=== PATIENT | female | born 1965 | race Caucasian/White ===

== ENCOUNTER 2019-04-25 12:50 | Day surgery (SDC) | payer MEDICAID ==
[2019-04-25] MEDS ORDERED: Marcaine 0.5% SDV 10 ML IJ ONE (12:51)
[2019-04-25] MEDS ORDERED: DIPRIVAN 200 MG/20 ML IV ONE (13:43)
[2019-04-25] MEDS ORDERED: Lactated Ringers 1,000 ML IV ONE (14:01)
--- NOTE | 2019-04-25 16:32 | XRAY ---
Indication: Ganglion nerve block. Intraoperative fluoroscopy was provided for 21 seconds. Single digital spot image submitted for interpretation demonstrates posterior needle tip projecting just anterior to the coccyx. Small amount of contrast injected for needle tip placement. Correlate with intraoperative findings/report.
--- NOTE | 2019-04-25 16:36 | XRAY ---
21 seconds fluoroscopy time in surgery for ganglion impar nerve block.
== END 2019-04-25 14:13 | disposition home or self-care (01) ==
LOC: SDC-PAIN 12:50
PROVIDERS: ATTEND Psychiatry & Neurology Pain Medicine
DX: M53.3 Sacrococcygeal disorders, not elsewhere classified (principal); I10 Essential (primary) hypertension; J45.909 Unspecified asthma, uncomplicated; M79.7 Fibromyalgia; F41.8 Other specified anxiety disorders; Z79.899 Other long term (current) drug therapy
CPT/HCPCS: 64999; 72020; 77002; 84703; J2704; Q9966

== ENCOUNTER 2019-05-09 12:31 | Day surgery (SDC) | payer MEDICAID, OTHER ==
[2019-05-09] MEDS ORDERED: Decadron 4 MG INJ IV ONE (12:32)
[2019-05-09] MEDS ORDERED: Xylocaine 1% Vial 30 ML PF IJ ONE (12:32)
[2019-05-09] MEDS ORDERED: Ketamine HCl 50 MG/ML ONE (13:52)
[2019-05-09] MEDS ORDERED: DIPRIVAN 200 MG/20 ML IV ONE (13:52)
[2019-05-09] MEDS ORDERED: Lactated Ringers 1,000 ML IV ONE (14:49)
--- NOTE | 2019-05-09 15:04 | XRAY ---
Indication: Left piriformis muscle injection. Intraoperative fluoroscopy was provided for 10 seconds. Single digital spot image submitted for interpretation demonstrates posterior needle tip projecting over the expected left piriformis muscle. Small amount of contrast injected for needle tip placement. Correlate with intraoperative findings/report.
--- NOTE | 2019-05-09 16:34 | XRAY ---
10 seconds of fluoroscopy was used in surgery for a left piriformis muscle injection.
== END 2019-05-09 14:15 ==
LOC: SDC-PAIN 12:31
PROVIDERS: ATTEND Psychiatry & Neurology Pain Medicine
DX: M79.18 Myalgia, other site (principal); I10 Essential (primary) hypertension; J45.909 Unspecified asthma, uncomplicated; M79.7 Fibromyalgia; F41.8 Other specified anxiety disorders; Z79.899 Other long term (current) drug therapy
CPT/HCPCS: 20552; 72020; 77002; 84703; J1100; J2001; J2704; Q9966

== ENCOUNTER 2019-06-20 13:49 | Day surgery (SDC) | payer OTHER ==
[2019-06-20] MEDS ORDERED: Depo-Medrol 40 MG/ML IM ONE (13:50)
[2019-06-20] MEDS ORDERED: Sodium Chloride 0.9(Preservative Free) 10 ML IJ ONE (13:50)
[2019-06-20] MEDS ORDERED: Xylocaine 1% Vial 30 ML PF IJ ONE (13:50)
[2019-06-20] MEDS ORDERED: DIPRIVAN 200 MG/20 ML IV ONE (16:07)
--- NOTE | 2019-06-20 16:41 | XRAY ---
Indication: Lumbar SCOTT. Intraoperative fluoroscopy was provided for 10 seconds. 2 digital spot images submitted for interpretation demonstrates midline needle tip just posterior to the last lumbar segment. Correlate with intraoperative findings/report.
--- NOTE | 2019-06-20 16:43 | XRAY ---
10 seconds fluoroscopy time in surgery for lumbar SCOTT.
[2019-06-20] MEDS ORDERED: Lactated Ringers 1,000 ML IV ONE (18:23)
== END 2019-06-20 16:37 | disposition home or self-care (01) ==
LOC: SDC-PAIN 13:49
PROVIDERS: ATTEND Psychiatry & Neurology Pain Medicine
DX: M54.16 Radiculopathy, lumbar region (principal); I10 Essential (primary) hypertension; J45.909 Unspecified asthma, uncomplicated; M79.7 Fibromyalgia; F41.8 Other specified anxiety disorders; Z79.899 Other long term (current) drug therapy
CPT/HCPCS: 62323; 72100; 77003; 84703; J1030; J2001; J2704; Q9966

== ENCOUNTER 2019-07-18 13:53 | Day surgery (SDC) | payer OTHER ==
[2019-07-18] MEDS ORDERED: Depo-Medrol 40 MG/ML IM ONE (13:54)
[2019-07-18] MEDS ORDERED: Xylocaine 1% Vial 30 ML PF IJ ONE (13:54)
[2019-07-18] MEDS ORDERED: Marcaine Mpf 0.5% Vial 30 Ml IJ ONE (13:54)
[2019-07-18] MEDS ORDERED: Decadron 4 MG INJ IV ONE (13:54)
[2019-07-18] MEDS ORDERED: DIPRIVAN 200 MG/20 ML IV ONE (14:58)
[2019-07-18] MEDS ORDERED: Ketamine HCl 50 MG/ML ONE (14:58)
--- NOTE | 2019-07-18 16:55 | XRAY ---
Indication: Left SI joint and piriformis muscle injection. Intraoperative fluoroscopy was provided for 21 seconds. 3 digital spot images submitted for interpretation demonstrates posterior needle tip projecting over the inferior left SI joint. Second needle tip projects over the expected left piriformis muscle with small amount of contrast injected for needle tip placement. Correlate with intraoperative findings/report.
[2019-07-18] MEDS ORDERED: Lactated Ringers 1,000 ML IV ONE (17:06)
--- NOTE | 2019-07-18 17:14 | XRAY ---
21 seconds fluoroscopy time in surgery for left SI joint and piriformis muscle injections.
== END 2019-07-18 15:25 | disposition home or self-care (01) ==
LOC: SDC-PAIN 13:53
PROVIDERS: ATTEND Psychiatry & Neurology Pain Medicine
DX: M46.1 Sacroiliitis, not elsewhere classified (principal); M79.18 Myalgia, other site; I10 Essential (primary) hypertension; J45.909 Unspecified asthma, uncomplicated; F41.8 Other specified anxiety disorders; G56.00 Carpal tunnel syndrome, unspecified upper limb; Z79.899 Other long term (current) drug therapy
CPT/HCPCS: 20550; 27096; 72170; 77002; 84703; J1030; J1100; J2001; J2704; Q9966; G0260

== ENCOUNTER 2019-09-05 11:39 | Day surgery (SDC) | payer OTHER ==
[2019-09-05] MEDS ORDERED: Marcaine 0.5% SDV 10 ML IJ ONE (11:40)
[2019-09-05] MEDS ORDERED: Depo-Medrol 40 MG/ML IM ONE (11:40)
[2019-09-05] MEDS ORDERED: Ketamine HCl 50 MG/ML ONE (12:55)
[2019-09-05] MEDS ORDERED: DIPRIVAN 200 MG/20 ML IV ONE (12:55)
--- NOTE | 2019-09-05 14:10 | XRAY ---
Indication: Left knee injection. Intraoperative fluoroscopy was provided for 5 seconds. Single digital spot images submitted for interpretation demonstrates needle tip projecting over the left femur intercondylar notch. Small amount of contrast injected for needle tip placement. Correlate with intraoperative findings/report.
[2019-09-05] MEDS ORDERED: Lactated Ringers 1,000 ML IV ONE (15:41)
--- NOTE | 2019-09-05 16:33 | XRAY ---
5 seconds fluoroscopy time in surgery for left intra-articular knee injection.
== END 2019-09-05 13:20 | disposition home or self-care (01) ==
LOC: SDC-PAIN 11:39
PROVIDERS: ATTEND Psychiatry & Neurology Pain Medicine
DX: M17.12 Unilateral primary osteoarthritis, left knee (principal); I10 Essential (primary) hypertension; M79.7 Fibromyalgia; F41.8 Other specified anxiety disorders; J45.909 Unspecified asthma, uncomplicated; Z79.899 Other long term (current) drug therapy
CPT/HCPCS: 20610; 73560; 77002; 84703; J1030; J2704; Q9966

== ENCOUNTER 2019-09-26 12:11 | Emergency (ER) | payer OTHER ==
[2019-09-26 12:28] VITALS: BP 159/94; PULSE 81; O2SAT 99
--- NOTE | 2019-09-26 12:44 | ERPHSYRPT ---
- History of Present Illness Time Seen by Provider: 09/26/19 12:30 Source: patient Exam Limitations: no limitations Patient Subjective Stated Complaint: Pt states that when she woke up today that she was having pain in her medial lower back that radiated down her left leg and is unable to walk, pt receives injections in her left knee from the pain clinic and was scheduled to get one in her back on Tuesday, hx of fibromyalgia , hx of chronic low back pain Triage Nursing Assessment: Pt brought to the ER by her husbands cousin, pt unable to walk today, normally walks with a cane, hypertensive, rates pain 10/ 10 in back and down left leg, tender to touch on mid lower back, pulses normal, cap refill normal Physician History: This is a 54-year-old female who presents with lower right side back pain. No acute injury. Patient has chronic pain issues. Patient was seen by her pain specialist on September 20 and September 24 of this year. She woke up this morning and had more severe pain in her right lower back. Patient was told that if she could get to the clinic earlier this morning, they could see her and give her pain injection (steroid). She could not get there in time and so she came to the emergency room. Patient is able to take Phenergan without any problems. She did not take her Phenergan medication this morning Timing/Duration: today Method of Injury: other (No acute traumatic injury) Quality: sharp Back Pain Location: paraspinous muscles (Right side lumbar level) Back Pain Radiation: buttocks Severity of Pain-Max: moderate Severity of Pain-Current: moderate Modifying Factors: Improves With: movement Associated Symptoms: denies symptoms Previous symptoms: same symptoms as today, recently seen, recently treated Allergies/Adverse Reactions: amoxicillin Allergy (Verified 09/26/19 12:28) Penicillins Allergy (Verified 09/26/19 12:28) prochlorperazine [From Compazine] Allergy (Verified 09/26/19 12:28) Home Medications: Baclofen 10 mg PO DAILY 09/26/19 [History] Duloxetine HCl 30 mg PO DAILY 09/26/19 [History] Fluticasone Propionate [Flovent 110 Mcg MDI] 1 spray IH UD 09/26/19 [ History] Gabapentin 400 mg PO DAILY 09/26/19 [History] Linaclotide [Linzess] 145 mcg PO DAILY 09/26/19 [History] Promethazine HCl 25 mg [Phenergan 25 mg] 25 mg PO TID 09/26/19 [History] Quetiapine Fumarate 100 mg [Seroquel 100 MG] 100 mg PO DAILY 09/26/19 [ History] lisinopriL [Lisinopril] 20 mg PO DAILY 09/26/19 [History] - Review of Systems Constitutional: No Symptoms Eyes: No Symptoms Ears, Nose, & Throat: No Symptoms Respiratory: No Symptoms Cardiac: No Symptoms Abdominal/Gastrointestinal: No Symptoms Genitourinary Symptoms: No Symptoms Musculoskeletal: Back Pain Skin: No Symptoms Neurological: No Symptoms Psychological: No Symptoms Endocrine: No Symptoms Hematologic/Lymphatic: No Symptoms Immunological/Allergic: No Symptoms All Other Systems: Reviewed and Negative - Past Medical History Neurological History: Migraines Cardiac History: Hypertension Respiratory History: Asthma Musculoskeletal History: Fibromyalgia History: No Pertinent History Psycho-Social History: No Pertinent History Female Reproductive Disorders: No Pertinent History - Past Surgical History Past Surgical History: Yes Neuro Surgical History: No Pertinent History Cardiac: No Pertinent History Respiratory: No Pertinent History Gastrointestinal: No Pertinent History Genitourinary: No Pertinent History Female Surgical History: Section, Other - Social History Smoking Status: Never smoker Exposure to second hand smoke: No Drug Use: marijuana Patient Lives Alone: No - Female History Hx Now: No - Nursing Vital Signs Nursing Vital Signs: Initial Vital Signs Temperature 99.4 F 09/26/19 12:17 Pulse Rate 81 09/26/19 12:17 Blood Pressure 159/94 09/26/19 12:17 O2 Sat by Pulse Oximetry 99 09/26/19 12:17 Pain Scale Pain Intensity [Left Thigh] 10 Pain Intensity 10 - Physical Exam General Appearance: mild distress, alert, anxiety Eye Exam: PERRL/EOMI, eyes nml inspection Ears, Nose, Throat Exam: normal ENT inspection, moist mucous membranes Neck Exam: normal inspection, non-tender, supple, full range of motion Respiratory Exam: No chest tenderness Gastrointestinal Exam: No tenderness Pelvic Exam: not done Rectal Exam: not done Back Exam: normal inspection, decreased range of motion, muscle spasm, No point tenderness Extremity Exam: normal inspection, normal range of motion, pelvis stable Neurologic Exam: alert, oriented x 3, cooperative, 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 Patient is then to follow-up with her primary care physician and pain specialist tomorrow for further management. Counseled pt/family regarding: diagnosis, need for follow-up - Departure Departure Disposition: Home Clinical Impression: Acute exacerbation of chronic low back pain Condition: Stable Critical Care Time: No Referrals: GABRIELLE STONE MD [Primary Care Provider] - Additional Instructions: Take your medications as prescribed. Follow-up with your pain specialist and primary care physician tomorrow for further management.
[2019-09-26] MEDS ORDERED: Hydromorphone 1 mg/ml Ampule IM ONE (12:46)
[2019-09-26] MEDS ORDERED: solu-MEDROL 125 MG IM ONE (12:47)
[2019-09-26] MEDS ORDERED: Phenergan 25 MG INJ IM ONE (12:47)
[2019-09-26] MEDS ORDERED: solu-MEDROL 125 MG ONE (12:50)
[2019-09-26] MEDS ORDERED: Hydromorphone 1 mg/ml Ampule ONE (12:50)
[2019-09-26] MEDS ORDERED: Phenergan 25 MG INJ ONE (12:50)
== END 2019-09-26 13:49 | disposition home or self-care (01) ==
LOC: ED 12:11
DX: M54.5 Low back pain (principal); M79.7 Fibromyalgia; Z79.899 Other long term (current) drug therapy; I10 Essential (primary) hypertension
CPT/HCPCS: 96372; 99284; J1170; J2550; J2930

== ENCOUNTER 2019-10-03 09:38 | Day surgery (SDC) | payer OTHER ==
[2019-10-03] MEDS ORDERED: Marcaine 0.5% SDV 10 ML IJ ONE (09:39)
[2019-10-03] MEDS ORDERED: Depo-Medrol 40 MG/ML IM ONE (09:39)
[2019-10-03] MEDS ORDERED: DIPRIVAN 200 MG/20 ML IV ONE (10:33)
[2019-10-03] MEDS ORDERED: Ketamine HCl 50 MG/ML ONE (10:33)
--- NOTE | 2019-10-03 11:49 | XRAY ---
Indication: Left hip injection. Intraoperative fluoroscopy was provided for 14 seconds. Single digital spot image submitted for interpretation demonstrate needle tip just lateral to the left femur neck. Small amount of contrast injected for needle tip placement. Correlated with intraoperative findings/report.
--- NOTE | 2019-10-03 12:01 | XRAY ---
14 seconds fluoroscopy time in surgery for left intra-articular hip injection.
[2019-10-03] MEDS ORDERED: Lactated Ringers 1,000 ML IV ONE (13:38)
== END 2019-10-03 11:20 | disposition home or self-care (01) ==
LOC: SDC-PAIN 09:38
PROVIDERS: ATTEND Psychiatry & Neurology Pain Medicine
DX: M16.12 Unilateral primary osteoarthritis, left hip (principal); I10 Essential (primary) hypertension; J45.909 Unspecified asthma, uncomplicated; F41.8 Other specified anxiety disorders; Z79.899 Other long term (current) drug therapy
CPT/HCPCS: 20610; 73501; 77002; 84703; J1030; J2704; Q9966

== ENCOUNTER 2020-02-06 14:00 | Day surgery (SDC) | payer OTHER ==
[~2020-02-06 14:00] MED LIST: DIPRIVAN 200 MG/20 ML IV ONE; Ketamine HCl 50 MG/ML ONE
[2020-02-06] MEDS ORDERED: Sodium Chloride 0.9(Preservative Free) 10 ML IJ ONE (14:01)
[2020-02-06] MEDS ORDERED: Depo-Medrol 40 MG/ML IM ONE (14:01)
[2020-02-06] MEDS ORDERED: Xylocaine 1% Vial 30 ML PF IJ ONE (14:01)
--- NOTE | 2020-02-06 16:35 | XRAY ---
Indication: Lumbar SCOTT. Intraoperative fluoroscopy was provided for 15 seconds. 2 digital spot images submitted for interpretation demonstrates midline posterior needle tip projecting just posterior to the lumbosacral junction interspace. Small amount of contrast injected for needle tip placement. Correlate with intraoperative findings/report.
[2020-02-06] MEDS ORDERED: Lactated Ringers 1,000 ML IV ONE (16:38)
--- NOTE | 2020-02-06 16:39 | XRAY ---
15 seconds fluoroscopy time in surgery for lumbar CSOTT.
== END 2020-02-06 15:26 | disposition home or self-care (01) ==
LOC: SDC-PAIN 14:00
PROVIDERS: ATTEND Psychiatry & Neurology Pain Medicine
DX: M54.16 Radiculopathy, lumbar region (principal); I10 Essential (primary) hypertension; M79.7 Fibromyalgia; J45.909 Unspecified asthma, uncomplicated; F41.8 Other specified anxiety disorders; Z79.899 Other long term (current) drug therapy
CPT/HCPCS: 62323; 72100; 77003; 84703; J1030; J2001; J2704; Q9966

== ENCOUNTER 2020-03-12 10:08 | Day surgery (SDC) | payer OTHER ==
[2020-03-12] MEDS ORDERED: BUPIVACAINE 0.5% VIAL IJ ONE (10:09)
[2020-03-12] MEDS ORDERED: Depo-Medrol 40 MG/ML IM ONE (10:09)
[2020-03-12] MEDS ORDERED: DIPRIVAN 200 MG/20 ML IV ONE (11:20)
[2020-03-12] MEDS ORDERED: Ketamine HCl 50 MG/ML ONE (11:20)
[2020-03-12] MEDS ORDERED: Lactated Ringers 1,000 ML IV ONE (14:40)
--- NOTE | 2020-03-12 15:15 | XRAY ---
Indication: Right knee injection. Intraoperative fluoroscopy was provided for 6 seconds. Single digital spot image submitted for interpretation demonstrates needle tip projecting right femur intercondylar notch. Small amount of contrast injected for needle tip placement. Correlate with intraoperative findings/report.
--- NOTE | 2020-03-12 15:15 | XRAY ---
Indication: Left knee injection. Intraoperative fluoroscopy was provided for 4 seconds. Single digital spot image submitted for interpretation demonstrates needle tip projecting left femur intercondylar notch. Small amount of contrast injected for needle tip placement. Correlate with intraoperative findings/report.
--- NOTE | 2020-03-12 17:01 | XRAY ---
6 seconds of fluoroscopy was used in surgery for a right intra-articular knee injection.
--- NOTE | 2020-03-12 17:10 | XRAY ---
4 seconds of fluoroscopy was used in surgery for a left intra-articular knee injection.
== END 2020-03-12 11:45 | disposition home or self-care (01) ==
LOC: SDC-PAIN 10:08
PROVIDERS: ATTEND Psychiatry & Neurology Pain Medicine
DX: M17.0 Bilateral primary osteoarthritis of knee (principal); I10 Essential (primary) hypertension; J45.909 Unspecified asthma, uncomplicated; M79.7 Fibromyalgia; F41.8 Other specified anxiety disorders
CPT/HCPCS: 20610; 73560; 77002; 84703; J1030; J2704; Q9966

== ENCOUNTER 2020-04-02 14:07 | Day surgery (SDC) | payer OTHER ==
[2020-04-02] MEDS ORDERED: Depo-Medrol 40 MG/ML IM ONE (14:08)
[2020-04-02] MEDS ORDERED: BUPIVACAINE 0.5% VIAL IJ ONE (14:08)
[2020-04-02] MEDS ORDERED: Lactated Ringers 1,000 ML IV ONE (15:27)
[2020-04-02] MEDS ORDERED: DIPRIVAN 200 MG/20 ML IV ONE (16:21)
[2020-04-02] MEDS ORDERED: Ketamine HCl 50 MG/ML ONE (16:21)
--- NOTE | 2020-04-02 16:52 | XRAY ---
Indication: Right shoulder injection. Intraoperative fluoroscopy was provided for 14 seconds. Single digital spot image submitted for interpretation demonstrates needle tip projecting over the right glenohumeral joint superiorly. Small amount of contrast injected for needle tip placement. Correlate with intraoperative findings/report.
--- NOTE | 2020-04-02 17:17 | XRAY ---
14 seconds fluoroscopy time in surgery for right shoulder intra-articular injection.
== END 2020-04-02 16:31 | disposition home or self-care (01) ==
LOC: SDC-PAIN 14:07
PROVIDERS: ATTEND Psychiatry & Neurology Pain Medicine
DX: M19.011 Primary osteoarthritis, right shoulder (principal); M25.511 Pain in right shoulder; I10 Essential (primary) hypertension; J45.909 Unspecified asthma, uncomplicated; F41.8 Other specified anxiety disorders; M79.7 Fibromyalgia; Z79.899 Other long term (current) drug therapy
CPT/HCPCS: 20610; 73030; 77002; 84703; J1030; J2704; Q9966

== ENCOUNTER 2020-05-14 10:54 | Day surgery (SDC) | payer OTHER ==
[2020-05-14] MEDS ORDERED: Xylocaine-Mpf 2% 5 Ml Vial IJ ONE (10:55)
[2020-05-14] MEDS ORDERED: Depo-Medrol 40 MG/ML IM ONE (10:55)
[2020-05-14] MEDS ORDERED: Lactated Ringers 1,000 ML IV ONE (13:45)
--- NOTE | 2020-05-14 14:17 | XRAY ---
Indication: Bilateral L4-S1 MBB. Intraoperative fluoroscopy provided for 1 minute 10 seconds. Single digital spot image submitted for interpretation demonstrates posterior needle tips projecting over the expected left and right L4-S1 nerve roots. Correlate with intraoperative findings/report.
--- NOTE | 2020-05-14 14:20 | XRAY ---
1 minute and 10 seconds fluoroscopy time in surgery for bilateral L4-S1 MBB.
== END 2020-05-14 13:50 | disposition home or self-care (01) ==
LOC: SDC-PAIN 10:54
PROVIDERS: ATTEND Psychiatry & Neurology Pain Medicine
DX: M47.816 Spondylosis without myelopathy or radiculopathy, lumbar region (principal); I10 Essential (primary) hypertension; J45.909 Unspecified asthma, uncomplicated; M79.7 Fibromyalgia; F41.8 Other specified anxiety disorders; Z79.899 Other long term (current) drug therapy
CPT/HCPCS: 72020; 77002; 84703; J1030; J2704

== ENCOUNTER 2020-06-11 14:52 | Day surgery (SDC) | payer OTHER ==
[2020-06-11] MEDS ORDERED: Depo-Medrol 40 MG/ML IM ONE (14:53)
[2020-06-11] MEDS ORDERED: BUPIVACAINE 0.5% VIAL IJ ONE (14:53)
[2020-06-11] MEDS ORDERED: Ketamine HCl 50 MG/ML ONE (15:57)
[2020-06-11] MEDS ORDERED: DIPRIVAN 200 MG/20 ML IV ONE (15:57)
--- NOTE | 2020-06-11 16:37 | XRAY ---
Indication: Bilateral L4-S1 MBB. Intraoperative fluoroscopy was provided for 14 seconds. Single digital spot image submitted for interpretation demonstrates posterior needle tips projecting over the expected left and right L4-S1 nerve roots. Correlate with intraoperative findings/report.
--- NOTE | 2020-06-11 16:41 | XRAY ---
14 seconds fluoroscopy time in surgery for bilateral L4-S1 MBB.
[2020-06-11] MEDS ORDERED: Lactated Ringers 1,000 ML IV ONE (16:52)
== END 2020-06-11 16:20 | disposition home or self-care (01) ==
LOC: SDC-PAIN 14:52
PROVIDERS: ATTEND Psychiatry & Neurology Pain Medicine
DX: M47.816 Spondylosis without myelopathy or radiculopathy, lumbar region (principal); I10 Essential (primary) hypertension; F41.8 Other specified anxiety disorders; J45.909 Unspecified asthma, uncomplicated; Z79.899 Other long term (current) drug therapy
CPT/HCPCS: 64493; 64494; 72020; 77002; 84703; J1030; J2704

== ENCOUNTER 2020-08-20 12:31 | Day surgery (SDC) | payer OTHER ==
[2020-08-20] MEDS ORDERED: BUPIVACAINE 0.5% VIAL IJ ONE (12:32)
[2020-08-20] MEDS ORDERED: Xylocaine 1% Vial 30 ML PF IJ ONE (12:32)
[2020-08-20] MEDS ORDERED: Depo-Medrol 40 MG/ML IM ONE (12:32)
[2020-08-20] MEDS ORDERED: Lactated Ringers 1,000 ML IV ONE (15:30)
[2020-08-20] MEDS ORDERED: Ketamine HCl 50 MG/ML ONE (16:05)
[2020-08-20] MEDS ORDERED: DIPRIVAN 200 MG/20 ML IV ONE ×2 (16:05→16:15)
--- NOTE | 2020-08-20 17:55 | XRAY ---
16 seconds fluoroscopy time in surgery for left L4-S1 RFA.
--- NOTE | 2020-08-20 17:56 | XRAY ---
Indication: Left L4-S1 RFA. Intraoperative fluoroscopy was provided for 16 seconds. 3 digital spot images submitted for interpretation demonstrates posterior needle tips projecting over the expected left L4-S1 nerve roots. Correlate with intraoperative findings/report.
== END 2020-08-20 16:37 | disposition home or self-care (01) ==
LOC: SDC-PAIN 12:31
PROVIDERS: ATTEND Psychiatry & Neurology Pain Medicine
DX: M47.817 Spondylosis without myelopathy or radiculopathy, lumbosacral region (principal); I10 Essential (primary) hypertension; J45.909 Unspecified asthma, uncomplicated; M79.7 Fibromyalgia; F41.8 Other specified anxiety disorders; Z79.899 Other long term (current) drug therapy
CPT/HCPCS: 36415; 72100; 77002; 81025; J1030; J2001; J2704

== ENCOUNTER 2020-10-15 13:42 | Day surgery (SDC) | payer OTHER ==
[2020-10-15] MEDS ORDERED: Depo-Medrol 40 MG/ML IM ONE (13:43)
[2020-10-15] MEDS ORDERED: BUPIVACAINE 0.5% VIAL IJ ONE (13:43)
[2020-10-15] MEDS ORDERED: Ketamine HCl 50 MG/ML ONE (14:55)
[2020-10-15] MEDS ORDERED: DIPRIVAN 200 MG/20 ML IV ONE (14:55)
[2020-10-15] MEDS ORDERED: Lactated Ringers 1,000 ML IV ONE (16:18)
--- NOTE | 2020-10-15 16:20 | XRAY ---
Indication: Bilateral SI joint injection. Intraoperative fluoroscopy provided for 18 seconds. 4 digital spot images submitted for interpretation demonstrates posterior needle tip projecting over the inferior left and right SI joint. Correlate with intraoperative findings/report.
--- NOTE | 2020-10-15 16:35 | XRAY ---
18 seconds fluoroscopy time in surgery for bilateral SI joint injections.
== END 2020-10-15 15:25 | disposition home or self-care (01) ==
LOC: SDC-PAIN 13:42
PROVIDERS: ATTEND Psychiatry & Neurology Pain Medicine
DX: M46.1 Sacroiliitis, not elsewhere classified (principal); I10 Essential (primary) hypertension; J45.909 Unspecified asthma, uncomplicated; M19.90 Unspecified osteoarthritis, unspecified site; M79.7 Fibromyalgia; F41.9 Anxiety disorder, unspecified; F32.9 Major depressive disorder, single episode, unspecified; G56.00 Carpal tunnel syndrome, unspecified upper limb; Z79.899 Other long term (current) drug therapy
CPT/HCPCS: 27096; 72202; 77002; 84703; J1030; J2704; G0260

== ENCOUNTER 2020-11-19 12:20 | Day surgery (SDC) | payer OTHER ==
[2020-11-19] MEDS ORDERED: BUPIVACAINE 0.5% VIAL IJ ONE (12:21)
[2020-11-19] MEDS ORDERED: Depo-Medrol 40 MG/ML IM ONE (12:21)
[2020-11-19] MEDS ORDERED: DIPRIVAN 200 MG/20 ML IV ONE (14:07)
[2020-11-19] MEDS ORDERED: SUBLIMAZE 100 MCG/2 ML ONE (14:08)
[2020-11-19] MEDS ORDERED: Lactated Ringers 1,000 ML IV ONE (16:12)
--- NOTE | 2020-11-19 16:41 | XRAY ---
Indication: Left knee injection. Intraoperative fluoroscopy provided for 5 seconds. Single digital spot image submitted for interpretation demonstrates needle tip projecting over the left femur intercondylar notch. Small amount of contrast injected for needle tip placement. Correlate with intraoperative findings/report.
--- NOTE | 2020-11-19 16:48 | XRAY ---
8 seconds fluoroscopy time in surgery for intra-articular injection of the right hip.
--- NOTE | 2020-11-19 16:48 | XRAY ---
6 seconds fluoroscopy time in surgery for intra-articular injection of the leftt hip.
--- NOTE | 2020-11-19 16:51 | XRAY ---
Indication: Right knee injection. Intraoperative fluoroscopy provided for 8 seconds. Single digital spot image submitted for interpretation demonstrates needle tip projecting over the right femur intercondylar notch. Small amount of contrast injected for needle tip placement. Correlate with intraoperative findings/report.
== END 2020-11-19 14:36 | disposition home or self-care (01) ==
LOC: SDC-PAIN 12:20
PROVIDERS: ATTEND Psychiatry & Neurology Pain Medicine
DX: M17.0 Bilateral primary osteoarthritis of knee (principal); I10 Essential (primary) hypertension; M79.7 Fibromyalgia; F41.8 Other specified anxiety disorders; J45.909 Unspecified asthma, uncomplicated; Z79.899 Other long term (current) drug therapy
CPT/HCPCS: 20610; 73560; 77002; 84703; J1030; J2704; J3010; Q9966

== ENCOUNTER 2021-01-07 11:19 | Day surgery (SDC) | payer OTHER ==
[2021-01-07] MEDS ORDERED: BUPIVACAINE 0.5% VIAL IJ ONE (11:20)
[2021-01-07] MEDS ORDERED: Depo-Medrol 40 MG/ML IM ONE (11:20)
[2021-01-07] MEDS ORDERED: DIPRIVAN 200 MG/20 ML IV ONE (12:50)
--- NOTE | 2021-01-07 14:16 | XRAY ---
Indication: Right shoulder and subacromial bursa injections. Intraoperative fluoroscopy provided for 25 seconds. 2 digital spot images submitted for interpretation demonstrates needle tip projecting over the right glenohumeral joint superiorly. Second needle tip projects subacromial. Small amount of contrast injected for both needle tip placement. Correlate with intraoperative findings/report.
--- NOTE | 2021-01-07 14:18 | XRAY ---
25 seconds of fluoroscopy was used in surgery for a right intra-articular and subachromial bursa injection.
[2021-01-07] MEDS ORDERED: Lactated Ringers 1,000 ML IV ONE (15:56)
== END 2021-01-07 13:56 | disposition home or self-care (01) ==
LOC: SDC-PAIN 11:19
PROVIDERS: ATTEND Psychiatry & Neurology Pain Medicine
DX: M19.011 Primary osteoarthritis, right shoulder (principal); M75.51 Bursitis of right shoulder; F41.9 Anxiety disorder, unspecified; F32.9 Major depressive disorder, single episode, unspecified; M19.90 Unspecified osteoarthritis, unspecified site; I10 Essential (primary) hypertension; J45.909 Unspecified asthma, uncomplicated; M79.7 Fibromyalgia; Z79.899 Other long term (current) drug therapy
CPT/HCPCS: 20610; 73030; 77002; 84703; J1030; J2704; Q9966